=== PATIENT | male | born 1995 | race Caucasian/White ===

== ENCOUNTER 2017-01-30 02:56 | Emergency (ER) | payer OTHER ==
[~2017-01-30] VITALS: Ht 188 cm; Wt 80.7 kg
[2017-01-30 03:04] VITALS: BP 153/94; PULSE 69; TEMP 36.5; O2SAT 96; Ht 188 cm; Wt 80.7 kg
[2017-01-30] MEDS ORDERED: CIPROFLOXACIN HCL 0.3% OP SOLN 2.5 ML BTL OP ONE (03:30)
--- NOTE | 2017-01-31 04:51 | EMERGENCY ROOM VISIT NOTE ---
History First contact with patient: 03:10 Chief Complaint: EYE ASSESSMENT Stated Complaint: EYE IS VERY LARGE,EYE TISSUE IS YELLOW History of Present Illness The patient is a 21 year old male who presents to the Emergency Room with complaints of irritation to his left eye that began about 30 minutes ago. The patient wears contact lenses and does not recall a distinct injury or trauma. He does have seasonal allergies and normally takes Benadryl on a daily basis. He did not take any of this today. The patient states that his eyes became itchy, and when he looked in the mirror, he saw that he had swelling of the left eye itself. The patient is not having vision changes or significant pain. He has not been anything [id number] for his symptoms. He rates his discomfort a 2/10. Review of Systems More than 10 systems were reviewed and otherwise negative with the exception of history of present illness. Past Medical/Surgical History No chronic medical disease Family History No pertinent family history Social History Smoking Status: Current Some Day Smoker Occupation Status: [employer] student Current/Historical Medications No Active Prescriptions or Reported Meds Allergies Coded Allergies: No Known Allergies (Unverified , 01/30/17) Physical Exam Vital Signs Date Time Temp Pulse Resp B/P Pulse Ox O2 Delivery O2 Flow Rate FiO2 01/30/17 03:04 36.5 69 18 153/94 96 Room Air Right Eye Acuity: 20/20 Left Eye Acuity: 20/25 Pain Rating (0-10): 0 Physical Exam VITALS: Vitals are noted on the nurse's note and reviewed by myself. Visual acuity as above. Vital signs reviewed. GENERAL: Well-developed, well-nourished, white male, who is in no acute distress and resting comfortably. Patient is cooperative with the examination. HEAD: Normocephalic atraumatic. EARS: External ear normal. External auditory canals clear, tympanic membranes pearly montes without erythema or effusion bilaterally. EYES: Pupils equal round and reactive to light and accommodation. Right conjunctivae with mild injection. Left conjunctiva is mildly injected with obvious chemosis laterally. No foreign body appreciated on slit lamp examination. Flourescein exam without abrasion. Extraocular movements intact. NOSE: Patent, turbinates without inflammation or discharge. MOUTH: Mucous membranes moist. Tonsils are not enlarged. Pharynx without erythema, blood, or exudate. Uvula midline. Airway patent. NECK: Supple without nuchal rigidity. No lymphadenopathy. No thyromegaly. Cervical spine is nontender. HEART: Regular rate and rhythm without murmurs gallops or rubs. LUNGS: Clear to auscultation bilaterally without wheezes, rales or rhonchi. No retractions or accessory muscle use. Medical Decision & Procedures Medications Administered Medications (Trade) Dose Ordered Sig/Ovidio Route Start Time Stop Time Status Last Admin Dose Admin Ciprofloxacin HCl (Ciprofloxacin 0.3% Op Soln) 2 drops NOW ONCE OP 01/30/17 03:30 4 03:31 DC 01/30/17 03:35 2 DROPS Diphenhydramine HCl (Benadryl Cap) 50 mg NOW ONCE PO 01/30/17 03:30 01/30/17 03:31 DC 01/30/17 03:35 50 MG ED Course Physical exam and history were performed. Nursing notes and EMR were reviewed. Patient appears to have a left ecchymosis that began earlier today. He does wear contact lenses. His visual acuity is not significantly altered because of his symptoms. Slit lamp and stained exam do not show obvious injury or foreign body. The patient will be given Ciloxan here in the department as well as a dose of Benadryl. He will need to follow with ophthalmology for further care and management, and is to contact the office in the morning. If he is not able to get up with ophthalmology tomorrow he is to call the ER and speak with case management. The patient may otherwise use Benadryl at home and was otherwise invited back to the ER with any new, worsening, or concerning symptoms. The chart was completed utilizing [employer] Speech Voice Recognition Software. Grammatical errors, random word insertions, pronoun errors, and incomplete sentences are an occasional consequence of this system due to software limitations, ambient noise, and hardware issues. Any formal questions or concerns about the content, text, or information contained within the body of this dictation should be directly addressed to the provider for clarification. . Medical Decision Differential diagnosis includes, but is not limited to: Corneal abrasion, laceration, foreign body, allergic reaction, and others Impression Primary Impression: Chemosis of left conjunctiva Departure Information Dispostion Home / Self-Care Condition GOOD Prescriptions No Active Prescriptions or Reported Meds Referrals Raoul Cordova D.O. Forms HOME CARE DOCUMENTATION FORM, IMPORTANT VISIT INFORMATION Patient Instructions [facility] Additional Instructions You were seen and evaluated today on an emergency basis only. This is not a substitute for, or an effort to provide, complete comprehensive medical care. It is not possible to recognize and treat all injuries or illnesses in a single emergency department visit. For this reason it is recommended that you followup with Ophthalmology, Dr. Cordova's office, by telephone at 8 AM. Let the office know you were seen in the emergency department and would like to see them later today. If you have difficulty getting in with ophthalmology today please call the ER at [phone] and ask to speak with field case manager. Use Ciloxan Eye Drops: Instill 1-2 drops into the conjunctival sac every 2 hours while awake for 2 days and 1-2 drops every 4 hours while awake for the next 5 days Do not use your contact lenses until cleared by ophthalmology. Take Benadryl 25-50 mg every 6 hours as needed You are welcome to return to the emergency department anytime with new, worsening, or concerning symptoms.
== END 2017-01-30 03:50 | disposition home or self-care (01) ==
LOC: C.EDB 02:57
DX: H11.422 Conjunctival edema, left eye (principal); F17.210 Nicotine dependence, cigarettes, uncomplicated